=== PATIENT | male | born 1995 ===

== ENCOUNTER 2022-12-22 09:52 | Emergency (ER) | payer SELFPAY ==
[~2022-12-22] VITALS: Ht 175.3 cm; Wt 72.2 kg
[2022-12-22 09:59] VITALS: BP 125/80
--- NOTE | 2022-12-22 10:13 | NUR ---
PT REFUSING ALL LAB WORK. UNABLE TO DO ASSESSMENT PT IS REFUSING TO ANSWER ANY AND ALL QUESTIONS.
--- NOTE | 2022-12-22 10:52 | NUR ---
called [facility], let them know pt percy.
== END 2022-12-22 11:06 | disposition left against medical advice (07) ==
LOC: ER 09:52
DX: F29 Unspecified psychosis not due to a substance or known physiological condition (principal); Z79.899 Other long term (current) drug therapy
CPT/HCPCS: 99283; 99285